=== PATIENT | male | born 1985 | race Caucasian/White ===

== ENCOUNTER 2018-06-28 19:22 | Emergency (ER) | payer OTHER ==
[~2018-06-28] VITALS: Ht 167.6 cm; Wt 97.5 kg
[2018-06-28 19:31] VITALS: Ht 167.6 cm; Wt 97.5 kg
[2018-06-28 22:40] VITALS: BP 125/82
== END 2018-06-28 22:40 | disposition home or self-care (01) ==
LOC: ED 19:22
DX: S51.811A Laceration without foreign body of right forearm, initial encounter (principal); W45.8XXA Other foreign body or object entering through skin, initial encounter; Y93.89 Activity, other specified; Y92.89 Other specified places as the place of occurrence of the external cause; Y99.0 Civilian activity done for income or pay
CPT/HCPCS: 90715; J2001

== ENCOUNTER 2018-07-06 15:53 | Emergency (ER) | payer OTHER ==
[~2018-07-06] VITALS: Ht 167.6 cm; Wt 97.5 kg
[2018-07-06 16:04] VITALS: Ht 167.6 cm; Wt 97.5 kg
[2018-07-06 17:21] VITALS: BP 132/84
== END 2018-07-06 17:21 | disposition home or self-care (01) ==
LOC: ED 15:53
DX: S51.811D Laceration without foreign body of right forearm, subsequent encounter (principal); Z48.02 Encounter for removal of sutures; X58.XXXD Exposure to other specified factors, subsequent encounter